=== PATIENT | female | born 2000 | race Caucasian/White ===

== ENCOUNTER 2020-11-07 02:58 | Emergency (ER) | payer OTHER ==
[2020-11-07] MEDS ORDERED: KEFLEX250 MG PO (08:28)
== END 2020-11-07 08:41 | disposition home or self-care (01) ==
LOC: FER 02:58
DX: S60.552A Superficial foreign body of left hand, initial encounter (principal); Z79.899 Other long term (current) drug therapy; X58.XXXA Exposure to other specified factors, initial encounter
CPT/HCPCS: 73130

== ENCOUNTER 2021-02-12 21:59 | Emergency (ER) | payer OTHER ==
[~2021-02-12 21:59] MED LIST: KEFLEX250 MG PO
[2021-02-12 23:02] LABS: BASOPHIL 0.4 % (0-2); EOSINOPHIL 6.9 % (0-5); HCT 45.1 % (37.0-47.0); LYMPHOCYTE 19.9 % (15-48); MCH 30.9 pg (25.0-31.0); MCHC 33.3 g/dL (32.0-36.0); MONOCYTE 8.2 % (0-12); MPV 10.1 fL (6.0-9.5); NEUTROPHIL 64.4 % (41-80); NRBC 0; PLT 216 K/uL (150-400); RBC 4.85 M/uL (4.20-5.40); RDW 12.2 % (11.5-14.0); WBC 11.3 K/uL (4.0-10.5)
[2021-02-12] MEDS ORDERED: PREDNISONE20 MG PO (23:04)
[2021-02-12 23:18] LABS: BUN/CREAT RATIO (CALC) 13.5 RATIO; CREATININE 0.74 mg/dL (0.51-0.95); POTASSIUM 3.7 mmol/L (3.5-5.1)
== END 2021-02-12 23:28 | disposition home or self-care (01) ==
LOC: FER 21:59
PROVIDERS: Nurse Practitioner Family
DX: J45.21 Mild intermittent asthma with (acute) exacerbation (principal); F17.290 Nicotine dependence, other tobacco product, uncomplicated; Z79.899 Other long term (current) drug therapy
CPT/HCPCS: 36415; 71046; 80048; 85025; J2930